=== PATIENT | female | born 1960 | race Caucasian/White ===

== ENCOUNTER 2017-07-28 10:04 | Emergency (ER) | payer OTHER ==
[~2017-07-28] VITALS: Ht 157.5 cm; Wt 80.0 kg
[~2017-07-28 10:04] MED LIST: ACET500C5 PO; ALPR0.25 PO; AZIT250T94 PO; HYD25 PO; IBUP-1542 PO; LOSA50TA6 PO; PROM5SYR2 PO
[2017-07-28 10:08] VITALS: Ht 157.5 cm; Wt 80.0 kg
[2017-07-28] MEDS ORDERED: LIDOCAINE 1% (MDV) 20 ML INJ SC ONE (10:30)
--- NOTE | 2017-07-28 10:50 | ERD ---
ER Documentation Chief Complaint Date/Time DATE: 07/28/17 TIME: 10:49 Chief Complaint left labia possible abcess HPI 57-year-old female presents with left labial pain and swelling has been ongoing for 2 weeks localized to the labia, achy, worse with any movement, better at rest. She states that over the last week however the pain has become worse. She denies fever or chills. ROS All systems reviewed and are negative except as per history of present illness. Medications Home Meds Active Scripts Ibuprofen* (Motrin*) 600 Mg Tab, 600 MG PO Q6, #30 TAB Prov:KALIE SIMENTAL PA-C 07/28/17 Clindamycin Hcl* (Clindamycin Hcl*) 300 Mg Capsule, 300 MG PO TID for 7 Days, CAP Prov:KALIE SIMENTAL PA-C 07/28/17 Ibuprofen* (Motrin*) 600 Mg Tab, 600 MG PO Q6, #15 TAB Prov:ANITA MEAD MD 11/16/16 Promethazine HCl/Codeine (Prometh-Codein 6.25-10 mg/5 ml) 5 Ml Syrup, 5 ML PO QID for 5 Days Prov:ANITA MEAD MD 11/16/16 Azithromycin* (Zithromax*) 250 Mg Tablet, 250 MG PO .PeriPACK DIRECTED, #6 TAB TAKE 500 MG (2 TABS) THE FIRST DAY THEN 250 MG (1 TAB) DAYS 2-5 Prov:ANITA MEAD MD 11/16/16 Hydrochlorothiazide* (Hydrochlorothiazide*) 25 Mg Tab, 25 MG PO DAILY, #30 TAB Prov:ANITA MEAD MD 03/05/16 Acetaminophen* (Tylophen*) 500 Mg Capsule, 1 CAP PO Q6H Y for PAIN AND OR ELEVATED TEMP, #16 CAP Prov:ANITA MEAD MD 03/05/16 Alprazolam* (Xanax*) 0.25 Mg Tablet, 0.25 MG PO Q8H Y for ANXIETY, #5 TAB Prov:NICOLE SMITH DO 03/03/16 Reported Medications Losartan Potassium* (Losartan Potassium*) 50 Mg Tablet, 50 MG PO DAILY, TAB 03/03/16 Allergies Allergies: Coded Allergies: Sulfa (Sulfonamide Antibiotics) (Unverified Allergy, Unknown, 11/16/16) PMhx/Soc Medical and Surgical Hx: pt denies Medical Hx, pt denies Surgical Hx History of Surgery: Yes (hysterectomy, kidney stones) Anesthesia Reaction: No Hx Neurological Disorder: No Hx Respiratory Disorders: No Hx Cardiac Disorders: Yes (htn) Hx Psychiatric Problems: No Hx Miscellaneous Medical Probl: No Hx Alcohol Use: No Hx Substance Use: No Hx Tobacco Use: No Smoking Status: Current every day smoker Physical Exam Vitals Vital Signs Date Time Temp Pulse Resp B/P Pulse Ox O2 Delivery O2 Flow Rate FiO2 07/28/17 10:08 98.1 79 18 151/95 99 Physical Exam General: Well-developed, well-nourished. The patient appears in no acute distress. HEENT: Head is normocephalic, atraumatic. No scleral icterus. Neck: Supple. Nontender. Lungs: Clear to auscultation. Normal air movement. Heart: Regular rate and rhythm. S1 and S2 are normal. No murmurs, gallops, or rubs. Abdomen: Nondistended. : Left labia has a 3 cm area of fluctuance, swelling. Extremities: No clubbing or cyanosis. Moving extremities x 4. No weakness. Neurologic: Alert and oriented 3. No focal deficits. Normal speech and gait. Skin: Normal turgor. No rash or lesions. Results 24 hrs Current Medications Medications (Trade) Dose Ordered Sig/Rodrigo Route PRN Reason Start Time Stop Time Status Last Admin Dose Admin Lidocaine (Xylocaine 1% (Mdv) 20 ml) 20 ml ONCE ONCE SC 07/28/17 10:30 07/28/17 10:31 DC Procedures/MDM Abscess Incision and Drainage with irrigation by me: Patient was verbally consented Location: Left labia Anesthesia: Local 1% Lidocaine Technique: Irrigated. Disrupted loculations w/ instrumentation Packing: None Complications: Neurovascularly intact post procedure 48 hour wound check. Scar minimization instructions given. Patient's skin symptoms have stabilized while they have been evaluated in the department and are appropriate for outpatient care and work up. Exam and w/u not consistent w/ sepsis, deep space infection, or foreign body. Medical decision makin-year-old female presents with approximately an abscess in the left labia, incision and drainage was done, there was a large amount of purulent material was able to be expressed. She tolerated procedure well is neurovascular intact and stable for discharge. Departure Diagnosis: Primary Impression: Encounter for incision and drainage procedure Additional Impression: Bartholin's gland abscess Condition: Good KALIE SIMENTAL PA-C Jul 28, 2017 10:50
[2017-07-28] MEDS ORDERED: CLIN-73 PO (11:00)
[2017-07-28] MEDS ORDERED: IBUP-1542 PO (11:00)
== END 2017-07-28 11:25 | disposition home or self-care (01) ==
LOC: FTE 10:04
DX: N75.1 Abscess of Bartholin's gland (principal); I10 Essential (primary) hypertension; F17.210 Nicotine dependence, cigarettes, uncomplicated
CPT/HCPCS: 56420; Z7502; Z7610

== ENCOUNTER 2019-03-29 12:05 | Inpatient (IN) | payer OTHER ==
[~2019-03-29] VITALS: Ht 152.4 cm; Wt 54.8 kg
[~2019-03-29 12:05] MED LIST changes: +AZIT250T PO; -AZIT250T94 PO; +CLIN300C10 PO; -HYD25 PO; +HYDR25TA6 PO; +LOSA50TA14 PO; -LOSA50TA6 PO
[2019-03-29 12:17] VITALS: Ht 152.4 cm; Wt 54.8 kg
--- NOTE | 2019-03-29 17:08 | ERD ---
ER Documentation Chief Complaint Chief Complaint DIZZINESS X 2 DAYS HPI Is a very pleasant 51-year-old female comes in with feeling of passing over the past 2 days. He says he felt lightheaded. At times she is also felt dizzy. Denies any chest pain nausea vomiting fevers or chills. Denies any other current complaints. Her blood pressures been very labile over the past few days as well. ROS All systems reviewed and are negative except as per history of present illness. Medications Home Meds Discontinued Reported Medications Losartan Potassium* (Losartan Potassium*) 50 Mg Tablet, 50 MG PO DAILY, TAB 03/03/16 Discontinued Scripts Ibuprofen* (Motrin*) 600 Mg Tab, 600 MG PO Q6, #30 TAB Prov:KALIE SIMENTAL PA-C 07/28/17 Clindamycin Hcl* (Clindamycin Hcl*) 300 Mg Capsule, 300 MG PO TID for 7 Days, CAP Prov:KALIE SIMENTAL PA-C 07/28/17 Ibuprofen* (Motrin*) 600 Mg Tab, 600 MG PO Q6, #15 TAB Prov:ANITA MEAD MD 11/16/16 Promethazine HCl/Codeine (Prometh-Codein 6.25-10 mg/5 ml) 5 Ml Syrup, 5 ML PO QID for 5 Days Prov:ANITA MEAD MD 11/16/16 Azithromycin* (Zithromax*) 250 Mg Tablet, 250 MG PO .ZPACK DIRECTED, #6 TAB TAKE 500 MG (2 TABS) THE FIRST DAY THEN 250 MG (1 TAB) DAYS 2-5 Prov:ANITA MEAD MD 11/16/16 Hydrochlorothiazide* (Hydrochlorothiazide*) 25 Mg Tab, 25 MG PO DAILY, #30 TAB Prov:ANITA MEAD MD 03/05/16 Acetaminophen* (Tylophen*) 500 Mg Capsule, 1 CAP PO Q6H PRN for PAIN AND OR ELEV ATED TEMP, #16 CAP Prov:ANITA MEAD MD 03/05/16 Alprazolam* (Xanax*) 0.25 Mg Tablet, 0.25 MG PO Q8H PRN for ANXIETY, #5 TAB Prov:NICOLE SMITH DO 03/03/16 Allergies Allergies: Coded Allergies: Sulfa (Sulfonamide Antibiotics) (Unverified Allergy, Unknown, 03/29/19) PMhx/Soc History of Surgery: Yes (hysterectomy, kidney stones) Anesthesia Reaction: No Hx Neurological Disorder: No Hx Respiratory Disorders: No Hx Cardiac Disorders: Yes (htn) Hx Psychiatric Problems: No Hx Miscellaneous Medical Probl: No Hx Alcohol Use: Yes (socially) Hx Substance Use: No Hx Tobacco Use: No Smoking Status: Never smoker Physical Exam Vitals Vital Signs Date Temp Pulse Resp B/P (MAP) Pulse Ox O2 O2 Flow FiO2 Time Delivery Rate 03/29/19 98.3 66 20 114/83 99 Room Air 17:00 (93) 03/29/19 97.7 65 16 136/58 99 Room Air 14:08 (84) 03/29/19 98.1 78 18 158/99 99 12:17 (118) Physical Exam Const: No acute distress Head: Atraumatic Eyes: Normal Conjunctiva ENT: Normal External Ears, Nose and Mouth. Neck: Full range of motion. No meningismus. Resp: Clear to auscultation bilaterally Cardio: Regular rate and rhythm, no murmurs Abd: Soft, non tender, non distended. Normal bowel sounds Skin: No petechiae or rashes Back: No midline or flank tenderness Ext: No cyanosis, or edema Neur: Awake and alert Psych: Normal Mood and Affect Result Diagram: 03/29/19 1355 03/29/19 1355 Results 24 hrs Laboratory Tests Test 03/29/19 13:55 White Blood Count 5.8 10^3/ul Red Blood Count 4.49 10^6/ul Hemoglobin 14.0 g/dl Hematocrit 41.2 % Mean Corpuscular Volume 91.8 fl Mean Corpuscular Hemoglobin 31.2 pg Mean Corpuscular Hemoglobin Concent 34.0 g/dl Red Cell Distribution Width 12.4 % Platelet Count 302 10^3/UL Mean Platelet Volume 9.2 fl Immature Granulocytes % 0.500 % Neutrophils % 60.2 % Lymphocytes % 28.4 % Monocytes % 6.4 % Eosinophils % 3.8 % Basophils % 0.7 % Nucleated Red Blood Cells % 0.0 /100WBC Immature Granulocytes # 0.030 10^3/ul Neutrophils # 3.5 10^3/ul Lymphocytes # 1.7 10^3/ul Monocytes # 0.4 10^3/ul Eosinophils # 0.2 10^3/ul Basophils # 0.0 10^3/ul Nucleated Red Blood Cells # 0.0 10^3/ul Sodium Level 144 mmol/L Potassium Level 3.9 mmol/L Chloride Level 110 mmol/L Carbon Dioxide Level 25 mmol/L Anion Gap 9 Blood Urea Nitrogen 13 mg/dl Creatinine 0.67 mg/dl Est Glomerular Filtrat Rate mL/min > 60 mL/min Glucose Level 119 mg/dl Calcium Level 9.3 mg/dl Total Bilirubin 0.4 mg/dl Direct Bilirubin 0.00 mg/dl Indirect Bilirubin 0.4 mg/dl Aspartate Amino Transf (AST/SGOT) 22 IU/L Alanine Aminotransferase (ALT/SGPT) 28 IU/L Alkaline Phosphatase 70 IU/L Troponin I < 0.012 ng/ml B-Type Natriuretic Peptide 27 PG/ML Total Protein 7.4 g/dl Albumin 4.4 g/dl Globulin 3.00 g/dl Albumin/Globulin Ratio 1.46 Procedures/MDM EKG: Rate/Rhythm: [Normal Sinus Rhythm] QRS, ST, T-waves: [No changes consistent w/ acute ischemia] Impression: [No evidence of ischemia or arrhythmia] Chest X-ray 1V Interpreted by me: Soft Tissue: No acute abnormalities Bones: No acute abnormalities Mediastinum/Cardiac Silhouette/Lungs: [No acute abnormalities] Patient's symptoms are concerning for cardiac cause will require inpatient workup and continuous monitoring. Further w/u for ischemia, arrhythmia, PE or dissection will be deferred to the inpatient team. Accepting Care Team: Current data and ongoing care discussed. Time: Time of admission Primary Provider: Hospitalist Consulting: [XOXOXO] Outstanding Data: none Departure Diagnosis: Primary Impression: Dizziness Additional Impression: Hypertension Hypertension type: unspecified Qualified Codes: I10 - Essential (primary) hypertension Condition: Serious CRISTIAN KNAPPMellissa March 29, 2019 17:08
--- NOTE | 2019-03-29 17:52 | HP ---
Date/Time of Note Date/Time of Note DATE: 03/29/19 TIME: 17:50 Assessment/Plan VTE Prophylaxis SCD applied (from Nsg): No SCD contraindicated: other Pharmacological prophylaxis: heparin Lines/Catheters IV Catheter Type (from Nrsg): Peripheral IV Assessment/Plan Hospital Course Assessment and plan: 59-year-old female coming in with dizziness symptoms for 1 day and generalized weakness and high blood pressure for 3 days. #dizziness. Suspect patient was taking too much of her home blood pressure medicine at home the last few days in which led to her dizziness -In any event, will admit the patient to syncope work-up including checking carotid Doppler study and echocardiogram -Consider do neuro checks every 4 hours and monitor heart rate on telemetry -Get PT eval x1, follow-up TSH A1c lipid panel #HTN: Blood pressure was slightly elevated on admission here, now has normalized -Cautiously restart losartan and monitor blood pressure very carefully -Patient educated about the importance of trying to avoid stressful events which could lead to high blood pressure at home Result Diagram: 03/29/19 1355 03/29/19 1355 Results 24hrs Laboratory Tests Test 03/29/19 13:55 White Blood Count 5.8 # Red Blood Count 4.49 Hemoglobin 14.0 Hematocrit 41.2 Mean Corpuscular Volume 91.8 Mean Corpuscular Hemoglobin 31.2 Mean Corpuscular Hemoglobin Concent 34.0 Red Cell Distribution Width 12.4 Platelet Count 302 Mean Platelet Volume 9.2 Immature Granulocytes % 0.500 H Neutrophils % 60.2 Lymphocytes % 28.4 Monocytes % 6.4 Eosinophils % 3.8 Basophils % 0.7 Nucleated Red Blood Cells % 0.0 Immature Granulocytes # 0.030 Neutrophils # 3.5 Lymphocytes # 1.7 Monocytes # 0.4 Eosinophils # 0.2 Basophils # 0.0 Nucleated Red Blood Cells # 0.0 Sodium Level 144 Potassium Level 3.9 Chloride Level 110 Carbon Dioxide Level 25 Anion Gap 9 Blood Urea Nitrogen 13 Creatinine 0.67 Est Glomerular Filtrat Rate mL/min > 60 Glucose Level 119 Calcium Level 9.3 Total Bilirubin 0.4 Direct Bilirubin 0.00 Indirect Bilirubin 0.4 Aspartate Amino Transf (AST/SGOT) 22 Alanine Aminotransferase (ALT/SGPT) 28 Alkaline Phosphatase 70 Troponin I < 0.012 B-Type Natriuretic Peptide 27 Total Protein 7.4 Albumin 4.4 Globulin 3.00 Albumin/Globulin Ratio 1.46 HPI/ROS Admit Date/Time Admit Date/Time March 29, 2019 at 16:22 Hx of Present Illness 51-year-old female past medical history of hypertension who presents with high uncontrolled blood pressure at home and dizziness for 1 day. Patient does admit to some positive stress at home and says that she has been having some work stress issues for the last week. She noticed for the last few days her blood pressures been high so instead of taking her losartan medication once a day she has been taking it twice a day for the last few days. She denies any upper or lower GI bleeding, nausea vomiting, fever chills, diarrhea constipation, chest pain or shortness of breath. PMH/Family/Social Past Medical History Coded Allergies: Sulfa (Sulfonamide Antibiotics) (Unverified Allergy, Unknown, 03/29/19) Past Surgical History Past Surgical Hx: other (Hysterectomy, kidney stones) Social History Alcohol Use: occasionally Smoking Status: Never smoker Drug Use: none Exam/Review of Systems Vital Signs Vitals Vital Signs Date Temp Pulse Resp B/P (MAP) Pulse Ox O2 O2 Flow FiO2 Time Delivery Rate 03/29/19 98.3 66 20 114/83 99 Room Air 17:00 (93) Exam Exam Gen: No acute distress Head: Atraumatic Eyes: Normal Conjunctiva ENT: Normal External Ears, Nose and Mouth. Neck: Full range of motion. No meningismus. Resp: Clear to auscultation bilaterally Cardio: Regular rate and rhythm, no murmurs Abd: Soft, non tender, non distended. Normal bowel sounds Ext: No lower extremity edema bilaterally Neuro: No focal deficits MERON WEBBER March 29, 2019 17:52
[2019-03-29] MEDS ORDERED: HYDROCODONE/APAP (5/325) TAB PO PRN (18:00)
[2019-03-29] MEDS ORDERED: hydrALAzine 20 MG INJ IV PRN (18:00)
[2019-03-29] MEDS ORDERED: MAGNESIUM HYDROXIDE 30ML CUP PO PRN (18:00)
[2019-03-29] MEDS ORDERED: DOCUSATE SODIUM 100 MG CAP PO PRN (18:00)
[2019-03-29] MEDS ORDERED: LORAZEPAM 2 MG INJ IV PRN (18:00)
[2019-03-29] MEDS ORDERED: NITROGLYCERIN (SL) 0.4 MG TAB SL PRN (18:00)
[2019-03-29] MEDS ORDERED: NACL 0.9% 3 ML SYG IV SCH (18:00)
[2019-03-29] MEDS ORDERED: morphine 2 MG INJ IV PRN (18:00)
[2019-03-29] MEDS ORDERED: ACETAMINOPHEN 325 MG TAB PO PRN (18:00)
[2019-03-29] MEDS ORDERED: ALBUTEROL/IPRATROPIUM (NEB) 3 ML AMP HHN PRN (18:00)
[2019-03-29] MEDS ORDERED: ONDANSETRON 4 MG INJ IV PRN (18:00)
[2019-03-29] MEDS ORDERED: LOSA50TA14 PO (18:05)
[2019-03-29 18:35] VITALS: BP 115/76; PULSE 63; RESP 17
[2019-03-29] MEDS: SOD CHLORIDE 0.45% 1,000 ML IV SCH (19:32)
[2019-03-29 19:37] VITALS: BP 135/83; PULSE 65; RESP 17
[2019-03-29 20:43] VITALS: PULSE 60
[2019-03-29] MEDS: HEPARIN 5,000 UNIT/1 ML VIAL SC SCH (21:44)
[2019-03-30] VITALS (8 sets, daily range): BP systolic 110–132; BP diastolic 64–83; PULSE 60–78; RESP 17–18
[2019-03-30] MEDS: SOD CHLORIDE 0.45% 1,000 ML IV SCH (05:21)
[2019-03-30] MEDS ORDERED: PANTOPRAZOLE (EC) 40 MG TAB PO SCH (06:00)
[2019-03-30] MEDS: HEPARIN 5,000 UNIT/1 ML VIAL SC SCH (08:44)
--- NOTE | 2019-03-30 11:58 | PDOCDIS ---
Discharge Instructions DIAGNOSIS Discharge Diagnosis Dizziness CONDITION [id number] Patient Condition: [id number] Good HOME CARE INSTRUCTIONS: [id number] Diet Instructions: [id number] Regular ACTIVITY: [id number] Activity Restrictions: [id number] No Restrictions FOLLOW UP/APPOINTMENTS Follow-up Plan 1. Take losartan once daily as prescribed. 2. See your primary care doctor in 1-2 weeks. 3. For maximum benefit, exercise 30 minutes per day at least 3 days per week. 1. Petty losartn enrrique vez al da segn lo prescrito. 2. Consulte a johns mdico de atencin primaria en 1-2 semanas. 3. Para obtener el mximo beneficio, felicia ejercicio 30 minutos por da al menos 3 hernadez por semana. WICHO VELASQUEZ MD March 30, 2019 11:58
--- NOTE | 2019-03-30 13:40 | RADRPT ---
Echocardiogram Report Patient Name: Yas THOMAStient ID: [id number] : 1960 (59y 2m)Study Date: 03/30/2019 9:20:56 AM Gender: FAccession #: [id number] Tech: Garo Farfan [facility] Location: 6-A Ref.Physician: MERON WEBBER Height(Cm): BSA: Weight(Kg): Quality: Technically Difficult StudyAccount #: Procedures: Echocardiographic Report: Transthoracic echocardiogram with complete 2D, M-Mode, and doppler examination. Indications: Syncope. Measurements: 2D/M Mode Doppler Measurement Value Normal Range Measurement Value Normal Range LVIDd 2D 3.5 [ 3.8 - 5.2 ] cm AV Peak Monico 1.3 [ 100.0 - 170.0 ] cm/sec LVIDs 2D 2.2 [ 2.2 - 3.5 ] cm AV Peak PG 7.0 [ 2.0 - 9.0 ] mmHg LVPWd 2D 1.0 [ 0.6 - 0.9 ] cm LVOT Peak Monico 1.0 [ 70.0 - 110.0 ] cm/sec IVSd 2D 1.4 [ 0.6 - 0.9 ] cm LVOT Peak PG 4.0 [ 2.0 - 6.0 ] mmHg AoR Diam 2D 2.9 [ 2.3 - 3.1 ] cm MV E Peak Monico 0.8 [ 60.0 - 130.0 ] cm/sec EDV 2D 50.2 [ 46.0 - 106.0 ] ml MV A Peak Monico 1.0 [ 100.0 - 120.0 ] cm/sec ESV 2D 17.0 [ 14.0 - 42.0 ] ml MV E/A 0.8 [ 0.8 - 1.5 ] ratio EF 2D 66.1 [ 54.0 - 74.0 ] percent MV Decel Time 208 [ 104 - 258 ] msec LA Dimen 2D 2.8 [ 2.7 - 3.8 ] cm Lat E` Monico 0.1 [ 10.0 - 15.0 ] cm/sec Lateral E/E` 13.5 [ 1.0 - 2.0 ] ratio MV E/A 0.8 [ 0.8 - 1.5 ] ratio TR Peak Monico 1.8 [ 100.0 - 280.0 ] cm/sec TR Peak PG 13.0 mmHg RVSP 23.0 [ 10.0 - 36.0 ] mmHg Findings: Left Ventricle: Normal left ventricular systolic function. Normal left ventricular cavity size. Sigmoid septum. Ejection fraction is visually estimated at 65-70 %. Tissue Doppler/Mitral Doppler indices are consistent with impaired relaxation (Stage I diastolic dysfunction). Right Ventricle: Normal right ventricular size. Normal right ventricular systolic function. Left Atrium: The left atrium is normal in size. Right Atrium: The right atrium is normal in size. Mitral Valve: Mild mitral leaflet calcification. Mild mitral annular calcification. Trace mitral regurgitation. Aortic Valve: No hemodynamically significant aortic stenosis by doppler. Aortic cusps appear mildly calcified. Tricuspid Valve: Normal appearance of the tricuspid valve. Estimated peak PA systolic pressure 23 mmHg. There is trace tricuspid regurgitation. Pericardium: Normal pericardium with no significant pericardial effusion. Aorta: Normal aortic root. IVC: Normal size and normal respiratory collapse consistent with normal right atrial pressure. Conclusions: Normal left ventricular systolic function. Normal left ventricular cavity size. Sigmoid septum. Ejection fraction is visually estimated at 65-70 %. Tissue Doppler/Mitral Doppler indices are consistent with impaired relaxation (Stage I diastolic dysfunction). Mild mitral leaflet calcification. Mild mitral annular calcification. Trace mitral regurgitation. No hemodynamically significant aortic stenosis by doppler. Aortic cusps appear mildly calcified. Normal appearance of the tricuspid valve. Estimated peak PA systolic pressure 23 mmHg. There is trace tricuspid regurgitation. Electronically Signed By: Amol Zuluaga 2019-03-30 13:40:05 PDT
--- NOTE | 2019-03-30 18:35 | DS ---
Date/Time of Note Date/Time of Note DATE: 03/30/19 TIME: 18:33 Discharge Summary Admission/Discharge Info Admit Date/Time March 29, 2019 at 16:22 Discharge Date/Time March 30, 2019 at 13:15 Discharge Diagnosis Dizziness Patient Condition: Good Hx of Present Illness 51-year-old female past medical history of hypertension who presents with high uncontrolled blood pressure at home and dizziness for 1 day. Patient does admit to some positive stress at home and says that she has been having some work stress issues for the last week. She noticed for the last few days her blood pressures been high so instead of taking her losartan medication once a day she has been taking it twice a day for the last few days. She denies any upper or lower GI bleeding, nausea vomiting, fever chills, diarrhea constipation, chest pain or shortness of breath. PMH/Family/Social Past Medical History Coded Allergies: Sulfa (Sulfonamide Antibiotics) (Unverified Allergy, Unknown, 03/29/19) Past Surgical History Past Surgical Hx: other (Hysterectomy, kidney stones) Social History Alcohol Use: occasionally Smoking Status: Never smoker Drug Use: none Hospital Course Unclear why the patient was admitted. Her "uncontrolled blood pressure" was 158/59 and all subsequent readings were lower. She had dizziness with no syncope. In the morning when I saw the patient she was feeling completely fine and had no dizziness. Labs and vitals were all completely normal. Discharged home. Home Meds Reported Medications Losartan Potassium* (Losartan Potassium*) 50 Mg Tablet, 50 MG PO DAILY, TAB 03/29/19 Discontinued Reported Medications Losartan Potassium* (Losartan Potassium*) 50 Mg Tablet, 50 MG PO DAILY, TAB 03/03/16 Discontinued Scripts Ibuprofen* (Motrin*) 600 Mg Tab, 600 MG PO Q6, #30 TAB Prov:KALIE SIMENTAL PA-C 07/28/17 Clindamycin Hcl* (Clindamycin Hcl*) 300 Mg Capsule, 300 MG PO TID for 7 Days, CAP Prov:KALIE SIMENTAL PA-C 07/28/17 Ibuprofen* (Motrin*) 600 Mg Tab, 600 MG PO Q6, #15 TAB Prov:ANITA MEAD MD 11/16/16 Promethazine HCl/Codeine (Prometh-Codein 6.25-10 mg/5 ml) 5 Ml Syrup, 5 ML PO QI D for 5 Days Prov:ANITA MEAD MD 11/16/16 Azithromycin* (Zithromax*) 250 Mg Tablet, 250 MG PO .ZPACK DIRECTED, #6 TAB TAKE 500 MG (2 TABS) THE FIRST DAY THEN 250 MG (1 TAB) DAYS 2-5 Prov:ANITA MEAD MD 11/16/16 Hydrochlorothiazide* (Hydrochlorothiazide*) 25 Mg Tab, 25 MG PO DAILY, #30 TAB Prov:ANITA MEAD MD 03/05/16 Acetaminophen* (Tylophen*) 500 Mg Capsule, 1 CAP PO Q6H PRN for PAIN AND OR ELEVATED TEMP, #16 CAP Prov:ANITA MEAD MD 03/05/16 Alprazolam* (Xanax*) 0.25 Mg Tablet, 0.25 MG PO Q8H PRN for ANXIETY, #5 TAB Prov:NICOLE SMITH DO 03/03/16 Follow-up Plan 1. Take losartan once daily as prescribed. 2. See your primary care doctor in 1-2 weeks. 3. For maximum benefit, exercise 30 minutes per day at least 3 days per week. 1. Assaria losartn enrrique vez al da segn lo prescrito. 2. Consulte a johns mdico de atencin primaria en 1-2 semanas. 3. Para obtener el mximo beneficio, felicia ejercicio 30 minutos por da al menos 3 hernadez por semana. Primary Care Provider [facility] Time spent on discharge: > 30 minutes Pending Labs Laboratory Tests Test 03/29/19 18:49 03/30/19 01:33 03/30/19 06:00 Creatine Kinase 53 IU/L (23-200) 43 IU/L (23-200) Creatine Kinase 0.4 0.5 Index Creatinine Kinase < 0.22 < 0.22 MB (Mass) ng/ml (0.0-2.4) ng/ml (0.0-2.4) Troponin I < 0.012 < 0.012 ng/ml (0.000-0.120) ng/ml (0.000-0.120 ) White Blood Count 7.4 10^3/ul (4.8-10.8) Red Blood Count 4.52 10^6/ul (4.20-5.40 ) Hemoglobin 13.9 g/dl (12.0-16.0) Hematocrit 41.4 % (37.0-47.0) Mean Corpuscular 91.6 Volume fl (82.0-101.0) Mean Corpuscular 30.8 Hemoglobin pg (29.0-33.0) Mean Corpuscular 33.6 Hemoglobin Concent g/dl (32.0-37.0) Red Cell 12.6 % (11.5-14.5) Distribution Width Platelet Count 279 10^3/UL (140-415) Mean Platelet 9.2 fl (7.4-10.4) Volume Immature 0.400 Granulocytes % % (0.001-0.429) Neutrophils % 60.8 % (39.0-77.0) Lymphocytes % 28.0 % (15.0-51.0) Monocytes % 6.3 % (0.0-11.0) Eosinophils % 3.8 % (0.0-7.0) Basophils % 0.7 % (0.0-2.0) Nucleated Red Blood 0.0 Cells % /100WBC (0.0-0.0) Immature 0.030 Granulocytes # 10^3/ul (0.0-0.031 ) Neutrophils # 4.5 10^3/ul (1.6-7.5) Lymphocytes # 2.1 10^3/ul (0.8-2.9) Monocytes # 0.5 10^3/ul (0.3-0.9) Eosinophils # 0.3 10^3/ul (0.0-0.5) Basophils # 0.1 10^3/ul (0.0-0.1) Nucleated Red Blood 0.0 Cells # 10^3/ul (0.0-0.0) Sodium Level 143 mmol/L (135-144) Potassium Level 4.3 mmol/L (3.5-5.1) Chloride Level 110 mmol/L (97-110) Carbon Dioxide 25 mmol/L (21-31) Level Anion Gap 8 (5-13) Blood Urea 17 mg/dl (7-20) Nitrogen Creatinine 0.77 mg/dl (0.44-1.00) Est Glomerular > 60 mL/min (>60) Filtrat Rate mL/min Glucose Level 100 mg/dl (70-220) Hemoglobin A1c 5.7 % (0-5.9) Calcium Level 9.0 mg/dl (8.4-10.2) Phosphorus Level 4.4 mg/dl (2.5-4.9) Magnesium Level 1.8 mg/dl (1.7-2.5) Triglycerides 101 mg/dl (0-149) Level Cholesterol Level 117 mg/dl (100-200) LDL Cholesterol, 66 mg/dl Calculated HDL Cholesterol 31 mg/dl (37-92) Cholesterol/HDL 3.7 RATIO Ratio Thyroid Stimulating 0.893 Hormone (TSH) MIU/L (0.465-4.680 ) WICHO VELASQUEZ MD March 30, 2019 18:35
== END 2019-03-30 13:15 | disposition home or self-care (01) | DRG 149 ==
LOC: E/R 12:05 → TEL 16:22 → EDBEDREQ 16:44
PROVIDERS: ADMIT Hospitalist; ATTEND Hospitalist
DX: R42 Dizziness and giddiness (principal); I10 Essential (primary) hypertension; Z88.2 Allergy status to sulfonamides; Z90.710 Acquired absence of both cervix and uterus
CPT/HCPCS: 36415; 71045; 80048; 80053; 80061; 82550; 82553; 83036; 83735; 83880; 84100; 84439; 84443; 84484; 85025; 93005; 93306; 93880; J1644